=== PATIENT | male | born 1995 | race Hispanic/Latino ===

== ENCOUNTER 2018-09-23 17:55 | Inpatient (IN) | payer OTHER ==
[~2018-09-23] VITALS: Ht 172.7 cm; Wt 86.1 kg
[2018-09-23 18:24] LABS: HEMATOCRIT 49.3 % (42.0-52.0); HEMOGLOBIN 17.3 g/dl (13.5-17.5); MEAN CORPUSCULAR HEMOGLOBIN 32.6 pg (27.0-33.0); MEAN CORPUSCULAR HGB CONC 35.1 g/dl (32.0-36.5); PLATELET COUNT, AUTOMATED 301 10^3/uL (150-450); WHITE BLOOD COUNT 7.2 10^3/uL (4.0-10.0)
[2018-09-23 18:54] LABS: AMPHETAMINES LEVEL URINE NEGATIVE (NEGATIVE); BARBITURATES URINE NEGATIVE (NEGATIVE); BENZODIAZEPINES URINE NEGATIVE (NEGATIVE); CANNABINOIDS URINE NEGATIVE (NEGATIVE); COCAINE METABOLITE URINE NEGATIVE (NEGATIVE); METHADONE URINE NEGATIVE (NEGATIVE); OPIATES URINE NEGATIVE (NEGATIVE); PHENCYCLIDINE URINE NEGATIVE (NEGATIVE)
[2018-09-23 19:02] LABS: ALBUMIN 4.7 GM/DL (3.2-5.2); ALT/SGPT 47 U/L (12-78); BILIRUBIN,DIRECT 0.2 MG/DL (0.0-0.2); BILIRUBIN,TOTAL 0.8 MG/DL (0.2-1.0); BLOOD UREA NITROGEN 12 MG/DL (7-18); CALCIUM LEVEL 8.9 MG/DL (8.5-10.1); CARBON DIOXIDE LEVEL 29 MEQ/L (21-32); CHLORIDE LEVEL 102 MEQ/L (98-107); CREATININE FOR GFR 1.02 MG/DL (0.70-1.30); ETHYL ALCOHOL (ETHANOL) < 0.003 % (0.000-0.010); GLOMERULAR FILTRATION RATE > 60.0 (>60); GLUCOSE, FASTING 93 MG/DL (70-100); POTASSIUM SERUM 3.8 MEQ/L (3.5-5.1); SALICYLATE LEVEL < 1.7 MG/DL (5.0-30.0); SODIUM LEVEL 137 MEQ/L (136-145); TOTAL PROTEIN 7.4 GM/DL (6.4-8.2)
[2018-09-23 19:03] LABS: ACETAMINOPHEN LEVEL < 2.0 UG/ML (10.0-30.0)
[2018-09-23] MEDS ORDERED: traZODone 50 MG TAB PO PRN (20:45)
[2018-09-23] MEDS ORDERED: ACETAMINOPHEN TAB 650MG DOSE (2X325MG) PO PRN (20:45)
[2018-09-23] MEDS ORDERED: MOM 30ML SUSPENSION UDC PO PRN (20:45)
[2018-09-23] MEDS ORDERED: MAALOX 30 ML SUSP *UDC PO PRN (20:45)
[2018-09-24 01:14] VITALS: BP 140/90
[2018-09-24] MEDS ORDERED: NICOTINE 21MG/24HR 1 EA TRANSDERMAL TD PRN (06:00)
[2018-09-24 06:43] VITALS: BP 118/70
[2018-09-24 08:45] VITALS: BP 118/70
--- NOTE | 2018-09-24 10:20 | HPEPDOC ---
[facility] Medical History & Physical Date of Admission Sep 23, 2018 History and Physical PCP: Duong MCCONNELL ATTENDING: Dr. Tasneem Cedillo HPI: 22 yo M admitted to [facility] for unspecified depressive disorder, being medically examined today. No acute medical complaints today. Denies any fevers, chills, weakness, fatigue, SALAS, CP, SOB, cough, palpitations, abdominal pain, N/V/D or changes in bowel or bladder habits. PMHx: Anxiety Depression History of SI PSHX: Appendectomy SOCHX: Resides in: [facility], from [place] Marital Status: Single Kids: 1 Employment: Active duty Tobacco use: One pack per week ETOH: 6 drinks on weekends Illicit Drugs: Denies IV Drug Use: Denies Tattoos done unprofessionally: Denies FAMHX: Mother: Alive, well Father: Alive, well Siblings: 3 sisters Alive, well Children: Alive, well Unexpected deaths due to medical reasons: None. ROS: As noted in HPI, otherwise 11pt ROS of systems reviewed and remarkable only for superficial abrasions noted to the anterior neck area which the patient states was related to "a game gone wrong". PE: GEN: 22 yo M, appears stated age. Well-nourished, well developed. No acute distress. Alert and oriented x 3. Avoids eye contact, short responses HEENT: Normocephalic, atraumatic. Pupils are equal, round, and reactive to light. Extraocular movements are intact. No nystagmus appreciated. Sclera are nonicteric. Conjunctiva without injection. Nose midline. Nasal turbinates without bogginess. EACs both patent BL. TMs both visualized and hubbard with good cone of light, no bulging or erythema. No facial asymmetry. Moist mucous membranes. Dentition fair. Pharynx pink and moist, no cobblestoning. Neck supple, trachea midline. No lymphadenopathy or thyromegaly appreciated. CHEST: Regular rate and rhythm, +S1, +S2 LUNGS: Clear to auscultation bilaterally. No wheezes, rales, or rhonchi. Breathing appears symmetric and easy. Patient is speaking in full sentences. No accessory muscle use. ABD: Round, soft, non-tender, non-distended. +Bowel sounds throughout. No rebound or guarding. No costovertebral angle tenderness. EXT: Pulses 2+ bilaterally dorsalis pedis and radial. No lower extremity edema appreciated. SKIN: [place], dry, warm. Capillary refill <2sec. No rashes. Superficial abrasions are noted to the anterior neck area. NEURO: Alert and oriented x 3. Cranial nerves III-XII are intact. No focal deficits appreciated. EKG: Pending A&P: 22 yo M admitted to [facility] for unspecified depressive disorder 1. Psych. Plan per Psychiatry. Obtain baseline EKG to assure the safety of psychiatric medications as they can prolong the QT interval. 2. Nicotine dependence. Patch available. 3. Follow up with PCP on discharge. 4. Staff member Kennedy present throughout exam. Vital Signs Vital Signs Date Time Temp Pulse Resp B/P (MAP) Pulse Ox O2 Delivery O2 Flow Rate FiO2 09/24/18 08:45 97.2 60 14 118/70 96 09/24/18 08:42 Room Air Laboratory Data Labs 24H Laboratory Tests 2 09/23/18 18:09: Nucleated Red Blood Cells % (auto) 0.0, Anion Gap 6L, Glomerular Filtration Rate > 60.0, Calcium Level 8.9, Aspartate Amino Transf (AST/SGOT) 21, Alanine Aminotransferase (ALT/SGPT) 47, Alkaline Phosphatase 92, Total Bilirubin 0.8, Direct Bilirubin 0.2, Total Protein 7.4, Albumin 4.7, Albumin/Globulin Ratio 1.74, Thyroid Stimulating Hormone (TSH) 1.110, Salicylates Level < 1.7L, Urine Amphetamines Screen NEGATIVE, Urine Benzodiazepines Screen NEGATIVE, Urine Opiates Screen NEGATIVE, Urine Methadone Screen NEGATIVE, Acetaminophen Level < 2.0L, Urine Barbiturates Screen NEGATIVE, Urine Phencyclidine Screen NEGATIVE, Urine Cocaine Metabolite Screen NEGATIVE, Urine Cannabinoids Screen NEGATIVE, Ethyl Alcohol Level < 0.003 CBC/BMP Laboratory Tests 09/23/18 18:09 Red Blood Count 5.30, Mean Corpuscular Volume 93.0, Mean Corpuscular Hemoglobin 32.6, Mean Corpuscular Hemoglobin Concent 35.1, Red Cell Distribution Width 12.1 Home Medications No Active Prescriptions or Reported Meds Allergies Coded Allergies: No Known Allergies (Unverified , 09/23/18) Nuha Moore Sep 24, 2018 10:20
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
[2018-09-24] MEDS ORDERED: hydrOXYzine 50 MG TAB PO PRN (12:30)
--- NOTE | 2018-09-24 16:31 | ECGEPIP ---
Stationary ECG Study [facility] Test Date: 2018-09-24 Pat Name: DIANA TAVERAS Department: Room: [place] [address] Gender: M Drug Abuse Resistance Education Officer: HOLDEN : 1995 Requested By: Nuha Moore Order Number: [id number] Reading MD: Naty Sparrow Measurements Intervals [place] Rate: 59 P: 25 WA: 176 QRS: 87 QRSD: 109 T: 44 QT: 363 QTc: 361 Interpretive Statements SINUS BRADYCARDIA EARLY REPOLARIZATION SUSPECTED NO PRIOR VERTICAL AXIS Electronically Signed On 09-24-2018 16:30:34 EST by Naty Sparrow
[2018-09-24 18:00] VITALS: BP 149/69
[2018-09-24] MEDS: QUEtiapine FUMARATE 100 MG TAB PO SCH (21:00)
[2018-09-25 06:13] VITALS: BP 144/77
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
[2018-09-25 18:18] VITALS: BP 143/86
[2018-09-25] MEDS: QUEtiapine FUMARATE 100 MG TAB PO SCH (21:00)
[2018-09-26 06:37] VITALS: BP 134/74
[2018-09-26 18:00] VITALS: BP 148/80
[2018-09-26] MEDS: QUEtiapine FUMARATE 100 MG TAB PO SCH (21:00)
[2018-09-27 06:00] VITALS: BP 131/64
[2018-09-27 18:00] VITALS: BP 126/63
[2018-09-27] MEDS: QUEtiapine FUMARATE 100 MG TAB PO SCH (21:00)
[2018-09-28 07:02] VITALS: BP 144/65
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
[2018-09-28 18:00] VITALS: BP 137/60
[2018-09-28] MEDS: QUEtiapine FUMARATE 100 MG TAB PO SCH (21:00)
--- NOTE | 2018-09-29 06:40 | MHIPN ---
DATE OF VISIT: 09/26/2018 The patient today states the he is doing good. He has no complaints. He says he slept well and he is denying suicidal thoughts. MENTAL STATUS EXAM: He is alert and oriented times three. Eye contact is fairly good. He is verbally spontaneous. He has no formal thought disorder noticed. He says his mood is good. His affect is constricted but appropriate to his mood. His concentration is fair, memory is intact. Insight and judgment fair. DIAGNOSES: 1. Rule out other specified depressive disorder. 2. Rule out adjustment disorder. 3. Rule out generalized anxiety disorder. TREATMENT PLAN: At this point we will continue to monitor the patient for continued elevations and stabilization. Continue resolution of suicidal ideations. He continues to feel that he does not need medications and at this point I do not think that any medications are indicated.
[2018-09-29 06:42] VITALS: BP 130/92
--- NOTE | 2018-09-29 06:48 | MHIPN ---
DATE OF SERVICE: 09/27/2018 The patient today continues to say that he is doing good. He has no complaints. He slept well. He denies suicidal ideations. MENTAL STATUS EXAM: He is awake, alert and oriented times three. He is pleasant and cooperative, verbally spontaneous. Eye contact is good. There is no formal thought disorder noted. He says that his mood is good, his affect is constricted but appropriate. He is not psychotic, suicidal, homicidal. Concentration is fair. Memory is intact. Insight and judgment is fair. DIAGNOSES: 1. Rule out other specified depressive disorder. 2. Rule out adjustment disorder. 3. Rule out generalized anxiety disorder. TREATMENT PLAN: At this point we will continue to monitor the patient for continued resolution of suicidal ideations and continue elevation and stabilization of his mood.
[2018-09-29] MEDS ORDERED: QUET1TAB8 PO (09:58)
[2018-09-29] MEDS ORDERED: HYDRO50TAB PO (09:58)
[2018-09-29] MEDS ORDERED: NICO21PAT TD (09:58)
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
== END 2018-09-29 11:05 | disposition home or self-care (01) | DRG 885 ==
LOC: M ED 17:55 → M ED INP 20:35 → M PSY 09-24 00:21
PROVIDERS: ADMIT Psychiatry & Neurology Psychiatry; ATTEND Psychiatry & Neurology Psychiatry
DX: F32.89 Other specified depressive episodes (principal); F41.1 Generalized anxiety disorder; F17.200 Nicotine dependence, unspecified, uncomplicated; F43.23 Adjustment disorder with mixed anxiety and depressed mood

== ENCOUNTER 2018-11-11 21:17 | Inpatient (IN) | payer OTHER ==
[~2018-11-11] VITALS: Ht 172.7 cm; Wt 80.9 kg
[~2018-11-11 21:17] MED LIST: HYDRO50TAB PO; NICO21PAT TD; QUET1TAB8 PO
[2018-11-11 22:16] LABS: HEMATOCRIT 46.8 % (42.0-52.0); HEMOGLOBIN 16.6 g/dl (13.5-17.5); MEAN CORPUSCULAR HEMOGLOBIN 33.1 pg (27.0-33.0); MEAN CORPUSCULAR HGB CONC 35.5 g/dl (32.0-36.5); MEAN CORPUSCULAR VOLUME 93.2 fl (80.0-96.0); PLATELET COUNT, AUTOMATED 301 10^3/uL (150-450); RED BLOOD COUNT 5.02 10^6/uL (4.30-6.10); WHITE BLOOD COUNT 6.1 10^3/uL (4.0-10.0)
[2018-11-11 22:35] LABS: AMPHETAMINES LEVEL URINE NEGATIVE (NEGATIVE); BARBITURATES URINE NEGATIVE (NEGATIVE); BENZODIAZEPINES URINE NEGATIVE (NEGATIVE); CANNABINOIDS URINE NEGATIVE (NEGATIVE); COCAINE METABOLITE URINE NEGATIVE (NEGATIVE); METHADONE URINE NEGATIVE (NEGATIVE); OPIATES URINE NEGATIVE (NEGATIVE); PHENCYCLIDINE URINE NEGATIVE (NEGATIVE)
[2018-11-11 22:45] LABS: ACETAMINOPHEN LEVEL < 2.0 UG/ML (10.0-30.0); ALBUMIN 4.4 GM/DL (3.2-5.2); ALT/SGPT 35 U/L (12-78); BILIRUBIN,DIRECT 0.1 MG/DL (0.0-0.2); BILIRUBIN,TOTAL 0.6 MG/DL (0.2-1.0); BLOOD UREA NITROGEN 12 MG/DL (7-18); CALCIUM LEVEL 8.4 MG/DL (8.5-10.1); CARBON DIOXIDE LEVEL 27 MEQ/L (21-32); CHLORIDE LEVEL 107 MEQ/L (98-107); CREATININE FOR GFR 0.96 MG/DL (0.70-1.30); ETHYL ALCOHOL (ETHANOL) 0.004 % (0.000-0.010); GLOMERULAR FILTRATION RATE > 60.0 (>60); GLUCOSE, FASTING 103 MG/DL (70-100); POTASSIUM SERUM 4.3 MEQ/L (3.5-5.1); SALICYLATE LEVEL < 1.7 MG/DL (5.0-30.0); SODIUM LEVEL 140 MEQ/L (136-145); TOTAL PROTEIN 7.2 GM/DL (6.4-8.2)
[2018-11-12] MEDS ORDERED: MOM 30ML SUSPENSION UDC PO PRN (00:30)
[2018-11-12] MEDS ORDERED: MAALOX 30 ML SUSP *UDC PO PRN (00:30)
[2018-11-12] MEDS ORDERED: traZODone 50 MG TAB PO PRN (00:30)
[2018-11-12] MEDS ORDERED: ACETAMINOPHEN TAB 650MG DOSE (2X325MG) PO PRN (00:30)
[2018-11-12 03:14] VITALS: BP 132/78
[2018-11-12 06:39] VITALS: BP 132/83
[2018-11-12] MEDS: NICOTINE 21MG/24HR 1 EA TRANSDERMAL TD SCH (09:00)
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
[2018-11-12 18:00] VITALS: BP 142/64
[2018-11-12] MEDS ORDERED: NICO21PAT TD (21:27)
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
[2018-11-13 06:55] VITALS: BP 132/72
[2018-11-13] MEDS: NICOTINE 21MG/24HR 1 EA TRANSDERMAL TD SCH (08:36)
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
== END 2018-11-13 09:15 | disposition home or self-care (01) | DRG 883 ==
LOC: M ED 21:17 → M ED INP 11-12 00:29 → M PSY 11-12 02:14
PROVIDERS: ADMIT Psychiatry & Neurology Psychiatry; ATTEND Psychiatry & Neurology Psychiatry
DX: F60.2 Antisocial personality disorder (principal); F17.200 Nicotine dependence, unspecified, uncomplicated; Z65.3 Problems related to other legal circumstances

== ENCOUNTER 2021-01-27 01:54 | Emergency (ER) | payer OTHER, SELFPAY ==
[~2021-01-27] VITALS: Ht 172.7 cm; Wt 79.0 kg
[~2021-01-27 01:54] MED LIST changes: +HYDR1TAB33 PO; -HYDRO50TAB PO; +QUET100T2 PO; -QUET1TAB8 PO
[2021-01-27] MEDS ORDERED: THIAMINE 200MG/2ML VIAL (J3411 PER 100MG) IV ONE (02:05)
[2021-01-27] MEDS ORDERED: NS 1,000 ML IV ONE (02:05)
[2021-01-27 02:09] LABS: BASO # 0.1 10^3/uL (0.0-0.2); BASO % 0.8 % (0.0-1.0); EOS # 1.1 10^3/uL (0.0-0.5); EOS % 10.4 % (0.0-3.0); HEMATOCRIT 48.1 % (42.0-52.0); HEMOGLOBIN 17.1 g/dl (13.5-17.5); LYMPH # 3.5 10^3/uL (1.5-5.0); LYMPH % 32.4 % (24.0-44.0); MEAN CORPUSCULAR HEMOGLOBIN 32.8 pg (27.0-33.0); MEAN CORPUSCULAR HGB CONC 35.6 g/dl (32.0-36.5); MEAN CORPUSCULAR VOLUME 92.1 fl (80.0-96.0); MONO # 0.7 10^3/uL (0.0-0.8); MONO % 6.1 % (2.0-8.0); NEUTROPHILS # 5.4 10^3/uL (1.5-8.5); NEUTROPHILS % 49.1 % (36.0-66.0); PLATELET COUNT, AUTOMATED 363 10^3/uL (150-450); RED BLOOD COUNT 5.22 10^6/uL (4.30-6.10); WHITE BLOOD COUNT 10.9 10^3/uL (4.0-10.0)
[2021-01-27 02:49] LABS: ACETAMINOPHEN LEVEL < 2.0 UG/ML (10.0-30.0); ALBUMIN 4.5 GM/DL (3.2-5.2); ALT/SGPT 44 U/L (12-78); BILIRUBIN,DIRECT 0.1 MG/DL (0.0-0.2); BILIRUBIN,TOTAL 0.4 MG/DL (0.2-1.0); BLOOD UREA NITROGEN 11 MG/DL (7-18); CALCIUM LEVEL 8.5 MG/DL (8.5-10.1); CARBON DIOXIDE LEVEL 22 MEQ/L (21-32); CHLORIDE LEVEL 110 MEQ/L (98-107); CREATININE FOR GFR 1.09 MG/DL (0.70-1.30); ETHYL ALCOHOL (ETHANOL) 0.299 % (0.000-0.010); GLOMERULAR FILTRATION RATE > 60.0 (>60); GLUCOSE, FASTING 112 MG/DL (70-100); POTASSIUM SERUM 3.9 MEQ/L (3.5-5.1); SALICYLATE LEVEL < 1.7 MG/DL (5.0-30.0); SODIUM LEVEL 142 MEQ/L (136-145); TOTAL PROTEIN 8.4 GM/DL (6.4-8.2)
--- NOTE | 2021-01-27 08:04 | ECGEPIP ---
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
[2021-01-27 09:22] VITALS: BP 149/83
== END 2021-01-27 09:23 | disposition home or self-care (01) ==
LOC: M ED 01:54
DX: F10.129 Alcohol abuse with intoxication, unspecified (principal); R00.0 Tachycardia, unspecified; I10 Essential (primary) hypertension